=== PATIENT | male | born 1995 | race Caucasian/White ===

== ENCOUNTER 2021-06-07 10:38 | Emergency (ER) | payer BC, SELFPAY ==
--- NOTE | ~2021-06-07 | XR_ITS ---
EXAMINATION: XR chest 2V DATE: 06/07/2021 11:23 INDICATION: Central chest pain. TECHNIQUE: Frontal and lateral views of the chest were obtained. COMPARISON: None. FINDINGS: The chest demonstrates clear lungs without pneumonia, pleural effusion, or pneumothorax. Th e heart size is normal. IMPRESSION: 1. No acute cardiopulmonary disease. Reviewed, dictated and finalized at location [facility] [employer] [facility]
--- NOTE | 2021-06-07 10:40 | ECG_ITS ---
Measurements Intervals [place] Rate: 85 P: 82 NH: 131 QRS: 56 QRSD: 87 T: 31 QT: 363 QTc: 434 Interpretive Statements SINUS RHYTHM NORMAL ECG NO PREVIOUS ECG AVAILABLE FOR COMPARISON Electronically Signed On 06-08-2021 13:50:13 [employer] by Barak Santoyo M.D.
[2021-06-07 10:57] VITALS: BP 145/77; PULSE 87; RESP 16; TEMP 36.7; O2SAT 100
[2021-06-07 11:29] VITALS: PULSE 84
[2021-06-07 11:31] VITALS: O2SAT 100
[2021-06-07 11:44] LABS: Basophils Absolute Auto 0.1 K/mm3 (0.0-0.1); Basophils Percent Auto 0.9 % (0.2-1.2); Eosinophils Absolute Auto 0.8 K/mm3 (0-0.3); Eosinophils Percent Auto 9.8 % (0-4.4); Hematocrit 46.6 % (42.0-52.0); Hemoglobin 16.3 g/dL (14.0-18.0); Immature Granulocyte Absolute 0.02 K/mm3 (0.00-0.031); Immature Granulocyte Percent A 0.2 % (0-0.5); Lymphocytes Percent Auto 18.6 % (18.3-44.2); Mean Corpuscular Hemoglobin 32.5 pg (26-34); Mean Corpuscular Volume 92.8 fl (80-100); Mean Platelet Volume 10.1 fl (7.4-10.4); Monocytes Absolute Auto 0.6 K/mm3 (0.1-0.6); Monocytes Percent Auto 7.1 % (2.6-8.5); Neutrophils Absolute Auto 5.1 K/mm3 (1.3-6.7); Neutrophils Percent Auto 63.4 % (45.5-73.1); Platelet Count Result 243 k/mm3 (150-375); Red Blood Count 5.02 M/mm3 (4.6-6.20); Red Cell Distribution Width 11.5 % (11.5-14.5); White Blood Count 8.1 K/mm3 (4.5-10.0)
--- NOTE | 2021-06-07 11:45 | ED.SOB ---
HPI - SOB/Dyspnea General Chief Complaint: Shortness of Breath/Dyspnea Stated Complaint: CHEST TIGHT X5D Time Seen by Provider: 06/07/21 11:24 Source: patient Mode of arrival: ambulatory Limitations: no limitations History of Present Illness HPI Narrative: This is a 26-year-old male that presents to the emergency department for intermittent shortness of breath. Ongoing over the last 5 days. Reports today when he woke up he had some left-sided chest discomfort which prompted him to be seen. Does report a mild cough. Denies fever, or lower extremity edema. Related Data Allergies Allergy/AdvReac Type Severity Reaction Status Date / Time No Known Allergies Allergy Verified 06/07/21 11:30 Review of Systems Review of Systems: CONSTITUTIONAL: Denies fever CARDIOVASCULAR: Reports chest pain. Denies edema. RESPIRATORY: Reports cough and dyspnea. All systems reviewed & are unremarkable except as noted in HPI and below PMFSH Past Medical History Medical History (Updated 06/07/21 @ 13:57 by Karen Jacobsen PA-C) No active medical problems Social History Social History (Updated 06/07/21 @ 11:47 by Karen Jacobsen PA-C) Substance use: current Substance use type: marijuana Exam Narrative: GENERAL: Well-appearing, well-nourished, and in no acute distress. HEAD: Normocephalic, atraumatic. EYES: EOMI. ENT: Mucous membranes moist. Oropharynx without tonsillar hypertrophy exudate or other lesions. CHEST: Clear to auscultation. No respiratory distress. No wheezes rales or rhonchi HEART: Regular rate and rhythm. No murmur heard. Normal peripheral pulses. EXTREMITIES: Normal range of motion. No edema. SKIN: Warm, dry, no rash. NEURO: No focal deficits. Alert and oriented x3. PSYCH: Normal mood and affect Course Vital Signs Vital signs: Vital Signs Temperature 98.1 F 06/07/21 10:57 Pulse Rate 87 06/07/21 10:57 Respiratory Rate 16 06/07/21 10:57 Blood Pressure 145/77 H 06/07/21 10:57 Pulse Oximetry 100 06/07/21 10:57 Temperature 98.1 F 06/07/21 10:57 Pulse Rate 84 06/07/21 11:29 Respiratory Rate 16 06/07/21 10:57 Blood Pressure 145/77 H 06/07/21 10:57 Pulse Oximetry 100 06/07/21 11:31 MDM - SOB/Dyspnea MDM Narrative Medical decision making narrative: Patient presents to the emergency department for intermittent shortness of breath noted over the last couple of days. He is afebrile and nontoxic-appearing. Lungs are clear on exam. Oxygen saturation has remained normal on room air. CBC and metabolic panel without concerning findings. BNP is not elevated. D-dimer is not elevated. Chest x-ray without acute cardiopulmonary abnormality. EKG without concerning changes and baseline troponin is negative. Patient was updated on case findings. He is stable and felt appropriate for further outpatient evaluation. Instructed to have close follow-up with his primary doctor. He was given warnings to return to the ER Lab Data Attestation: I reviewed the patient's lab results. Result diagrams: 06/07/21 11:36 06/07/21 11:36 Labs: Lab Results 06/07/21 06/07/21 06/07/21 Range/Units 11:36 11:36 11:36 WBC 8.1 (4.5-10.0) K/mm3 RBC 5.02 (4.6-6.20) M/mm3 Hgb 16.3 (14.0-18.0) g/dL Hct 46.6 (42.0-52.0) % MCV 92.8 (80-100) fl MCH 32.5 (26-34) pg MCHC 35.0 (32-36) g/dl RDW 11.5 (11.5-14.5) % Plt Count 243 (150-375) k/mm3 MPV 10.1 (7.4-10.4) fl Immature Gran % (Auto) 0.2 (0-0.5) % Neut % (Auto) 63.4 (45.5-73.1) % Lymph % (Auto) 18.6 (18.3-44.2) % Maverick % (Auto) 7.1 (2.6-8.5) % Eos % (Auto) 9.8 H (0-4.4) % Baso % (Auto) 0.9 (0.2-1.2) % Lymph # (Auto) 1.50 (0.9-3.2) K/mm3 [place]ick # (Auto) 0.6 (0.1-0.6) K/mm3 Eos # (Auto) 0.8 H (0-0.3) K/mm3 Baso # (Auto) 0.1 (0.0-0.1) K/mm3 Abs Immat Gran (auto) 0.02 (0.00-0.031) K/mm3 Absolute Neuts (auto) 5.1 (1.3-6.7) K/mm3
[2021-06-07 11:54] LABS: Alanine Aminotransferase 25 U/L (4-50); Albumin Level 4.6 g/dL (3.5-5.1); Alkaline Phosphatase 90 U/L (38-126); Anion Gap 7 mmol/L (8-16); Aspartate Amino Transferase 36 U/L (17-59); Blood Urea Nitrogen 16 mg/dL (9-20); Calcium 9.2 mg/dL (8.4-10.2); Carbon Dioxide 26 mmol/L (22-30); Chloride 105 mmol/L (98-107); Estimated CRCL calculation 113 ml/min; Estimated Glomerular Filt Rate > 60; Glucose 96 mg/dL (65-110); Lipase 54 U/L (23-300); Potassium 4.2 mmol/L (3.4-5.0); Sodium 138 mmol/L (137-145)
[2021-06-07 12:03] LABS: NT Pro B Type Natriuretic Pept 47 pg/mL (5-100)
[2021-06-07 12:05] VITALS: BP 134/68; PULSE 84; RESP 16; O2SAT 98
[2021-06-07 12:06] LABS: Troponin I < 0.012 ng/mL (0.000-0.034)
[2021-06-07 12:07] LABS: INR 1.1
[2021-06-07 12:08] LABS: Partial Thromboplastin Time 34.2 SECONDS (22.3-36.8)
[2021-06-07 13:31] LABS: D Dimer 0.46 ug/mL (<0.48)
[2021-06-07 13:50] VITALS: BP 122/69; PULSE 72; RESP 16; O2SAT 99
== END 2021-06-07 14:09 | disposition home or self-care (01) ==
PROVIDERS: Physician Assistant; Emergency Provider Emergency Medicine; PCP Nurse Practitioner Family
DX: R06.00 Dyspnea, unspecified (principal)
CPT/HCPCS: 36415; 71046; 80053; 83690; 83880; 84484; 85025; 85380; 85610; 85730; 93005; 99284